=== PATIENT | male | born 1990 | race African-American/Black ===

== ENCOUNTER 2017-04-09 18:52 | Emergency (ER) | payer MEDICAID ==
[~2017-04-09] VITALS: Ht 195.6 cm; Wt 82.0 kg
[2017-04-09] MEDS ORDERED: SODIUM CHLORIDE 0.9% 500 ML IV ONE (22:32)
[2017-04-09] MEDS ORDERED: SODIUM CHLORIDE 0.9% 1,000 ML IV ONE (22:32)
[2017-04-09] MEDS ORDERED: MAGNESIUM/ALUMINUM HYDROXIDE/SIMETHICONE 30ML UDC PO STA (22:32)
[2017-04-09 22:50] LABS: CLARITY URINE CLEAR (CLEAR); COLOR URINE YELLOW (YELLOW); KETONES URINE NEGATIVE (NEGATIVE); LEUKOCYTE ESTERASE URINE NEGATIVE (NEGATIVE); NITRITE URINE NEGATIVE (NEGATIVE); OCCULT BLOOD URINE NEGATIVE (NEGATIVE); PH URINE >=9.0 (4.5-8.0); PROTEIN URINE 2+ (NEGATIVE); SPECIFIC GRAVITY URINE 1.024 (1.005-1.030)
[2017-04-09 23:01] LABS: *AMPHETAMINES SCREEN URINE NEGATIVE (NEGATIVE); *BARBITURATES SCREEN URINE NEGATIVE (NEGATIVE); *BENZODIAZEPINES SCREEN URINE NEGATIVE (NEGATIVE); *COCAINE SCREEN URINE NEGATIVE (NEGATIVE); CANNABINOID URINE SCREEN PRESUMTIVE POSITIVE (NEGATIVE); METHADONE URINE SCREEN NEGATIVE (NEGATIVE); OPIATES URINE SCREEN NEGATIVE (NEGATIVE); PHENCYCLIDINE URINE SCREEN NEGATIVE (NEGATIVE)
[2017-04-09 23:16] LABS: BASOPHILS % 0.5 % (0.0-2.0); HEMATOCRIT. 41.1 % (42.0-52.0); HEMOGLOBIN. 13.2 g/dL (14.0-18.0); LYMPHOCYTES % 50.9 % (20.0-50.0); MEAN CORPUSCULAR HEMOGLOBIN 21.9 pg (28.0-32.0); MONOCYTES % 7.3 % (2.0-8.0); NEUTROPHILS % 39.3 % (40.0-76.0); PLATELET 125 x1000/uL (130-400); RED BLOOD CELL COUNT 6.05 mill/uL (4.7-6.1); RED CELL DISTRIBUTION WIDTH 13.9 % (11.6-14.6)
[2017-04-09 23:18] LABS: PLATELET ESTIMATE SLIGHTLY DECREASED
[2017-04-09 23:20] LABS: CHLORIDE 100 mEq/L (98-107)
[2017-04-09 23:25] LABS: INR 1.1; PROTHROMBIN TIME 11.7 sec (9.4-11.6)
[2017-04-09 23:30] LABS: CARBON DIOXIDE 32 mEq/L (21-32); ETHANOL BLOOD < 10 mg/dL
[2017-04-10 03:33] VITALS: BP 109/53
== END 2017-04-10 03:34 | disposition home or self-care (01) ==
LOC: ER 20:02
DX: R74.0 Nonspecific elevation of levels of transaminase and lactic acid dehydrogenase [LDH] (principal); R16.0 Hepatomegaly, not elsewhere classified; D69.6 Thrombocytopenia, unspecified; J45.909 Unspecified asthma, uncomplicated; F12.90 Cannabis use, unspecified, uncomplicated; K59.00 Constipation, unspecified
CPT/HCPCS: 36415; 76705; 80053; 80305; 81001; 83690; 85025; 85610; 96360; 99285; G0482; J7030; J7040

== ENCOUNTER 2018-03-20 13:07 | Emergency (ER) | payer MEDICAID ==
[~2018-03-20] VITALS: Ht 188 cm; Wt 75.0 kg
[2018-03-20 13:30] VITALS: BP 111/74
== END 2018-03-20 13:42 | disposition home or self-care (01) ==
LOC: ER 13:07
DX: H10.9 Unspecified conjunctivitis (principal); J45.909 Unspecified asthma, uncomplicated
CPT/HCPCS: 99283

== ENCOUNTER 2018-08-06 10:05 | Emergency (ER) | payer MEDICAID ==
[~2018-08-06] VITALS: Ht 182.9 cm; Wt 73.0 kg
[2018-08-06 10:30] VITALS: BP 127/67
== END 2018-08-06 11:00 | disposition home or self-care (01) ==
LOC: ER 10:05
DX: Z00.00 Encounter for general adult medical examination without abnormal findings (principal)
CPT/HCPCS: 99281

== ENCOUNTER 2021-10-15 07:15 | Emergency (ER) | payer MEDICAID ==
[~2021-10-15] VITALS: Ht 195.6 cm; Wt 68.5 kg
[2021-10-15 07:50] VITALS: BP 120/73
[2021-10-15] MEDS ORDERED: ACETAMINOPHEN 325MG TABLET PO ONE (08:30)
[2021-10-15] MEDS ORDERED: LIDOCAINE 5% PATCH TOP SCH (09:00)
[2021-10-15] MEDS ORDERED: IBUP-2029 MT (10:19)
[2021-10-15] MEDS ORDERED: LIDO700A15 TP (10:19)
[2021-10-15] MEDS ORDERED: DIPH28.34 TP (11:20)
== END 2021-10-15 11:37 | disposition home or self-care (01) ==
LOC: ER 07:15
DX: S20.212A Contusion of left front wall of thorax, initial encounter (principal); M25.531 Pain in right wrist; Y08.89XA Assault by other specified means, initial encounter; Y93.89 Activity, other specified; Y92.89 Other specified places as the place of occurrence of the external cause; Y99.8 Other external cause status
CPT/HCPCS: 29125; 71101; 73110; 86592; 99284

== ENCOUNTER 2021-11-25 16:26 | Emergency (ER) | payer MEDICAID ==
[~2021-11-25] VITALS: Ht 195.6 cm; Wt 72.0 kg
[~2021-11-25 16:26] MED LIST: DIPH28.34 TP; IBUP-2029 MT; LIDO700A15 TP
[2021-11-25 17:07] VITALS: BP 124/67
== END 2021-11-25 23:24 | disposition left against medical advice (07) ==
LOC: ER 16:26
DX: Z53.21 Procedure and treatment not carried out due to patient leaving prior to being seen by health care provider (principal)